=== PATIENT | male | born 1970 | race Caucasian/White ===

== ENCOUNTER 2023-03-21 03:46 | Emergency (ER) | payer OTHER ==
[~2023-03-21] VITALS: Ht 185.4 cm; Wt 81.6 kg
[2023-03-21 03:48] VITALS: BP 105/78; PULSE 81; RESP 11; TEMP 97.5; O2SAT 97
--- NOTE | 2023-03-21 04:00 | NUR ---
seen and evaluated by ALINA
[2023-03-21 04:10] VITALS: BP 105/78; PULSE 81; RESP 11; TEMP 97.5; O2SAT 97
--- NOTE | 2023-03-21 04:10 | NUR ---
Patient discharged with v/s stable. Written and verbal after care instructions given and explained. Patient verbalized understanding. Police with steady gait. All questions addressed prior to discharge. Advised to follow up with PMD.
== END 2023-03-21 04:10 ==
LOC: MED 03:46
DX: Z02.89 Encounter for other administrative examinations (principal); V49.88XA Car occupant (driver) (passenger) injured in other specified transport accidents, initial encounter; Y93.89 Activity, other specified; Y92.89 Other specified places as the place of occurrence of the external cause; Y99.8 Other external cause status
CPT/HCPCS: 99283